=== PATIENT | female | born 1980 | race Caucasian/White ===

== ENCOUNTER 2019-07-09 19:12 | Inpatient (IN) | payer OTHER, SELFPAY ==
[2019-07-09] VITALS (9 sets, daily range): BP systolic 118–142; BP diastolic 77–98; PULSE 83–96; TEMP 36.4; BMI 31.2
--- NOTE | 2019-07-09 19:40 | LDADM ---
This patient, Radha Bacon, was admitted to Labor/Delivery/Recovery 105 on 07/09/19 at 19:12. Plans for labor, pain management and were discussed with patient. Patient/family oriented to hospital policies and general routines including ID bracelet, bed and alarms, visiting hours, pain management, procedures, bathroom and other care routines, personal items, smoking policy, room service/diet and guest tray routines, infant security routines, and visiting hours. Patient/Family are encouraged to report perceived risks to care and to ask questions if they do not understand what they are told or what they should do. See OBIX for further documentation.
[2019-07-09] MEDS: DINOPROSTONE 10 MG VAG INSERT VAGINAL (20:08)
[2019-07-09 20:11] LABS: Basophils Percent Auto 0.1 % (0.2-1.2); Eosinophils Absolute Auto 0.1 K/mm3 (0-0.3); Eosinophils Percent Auto 0.4 % (0-4.4); Hematocrit 33.4 % (37.0-47.0); Hemoglobin 10.7 g/dL (12.0-15.0); Immature Granulocyte Absolute 0.05 K/mm3 (0.00-0.031); Immature Granulocyte Percent A 0.4 % (0-0.5); Lymphocytes Absolute Auto 2.44 K/mm3 (0.9-3.2); Lymphocytes Percent Auto 21.7 % (18.3-44.2); Mean Corpuscular Hemoglobin 25.8 pg (26-34); Mean Corpuscular Volume 80.7 fl (80-100); Mean Platelet Volume 11.8 fl (7.4-10.4); Monocytes Absolute Auto 0.8 K/mm3 (0.1-0.6); Monocytes Percent Auto 6.7 % (2.6-8.5); Neutrophils Percent Auto 70.7 % (45.5-73.1); Platelet Count Result 318 k/mm3 (150-375); Red Blood Count 4.14 M/mm3 (4.2-5.4); Red Cell Distribution Width 14.8 % (11.5-14.5); White Blood Count 11.3 K/mm3 (4.5-10.0)
[2019-07-09 21:02] LABS: HIV 1/2 Ab P24 Ag Result Negative (Negative)
[2019-07-10] VITALS (183 sets, daily range): BP systolic 90–152; BP diastolic 49–131; PULSE 55–149; RESP 14–18; TEMP 36.3–37.6; O2SAT 90–100
[2019-07-10] MEDS: LACTATED RINGERS 1,000 ML 125 ML IV CONT ×4 (05:34→22:15)
[2019-07-10] MEDS: OXYTOCIN 30 UNITS/NS 500 ML 30 UNITS/500 ML BAG IV CONT (05:34)
[2019-07-10] MEDS: ONDANSETRON INJ 4 MG/2 ML VIAL IV PUSH ×2 (06:39→12:38)
[2019-07-10 09:25] LABS: Rapid Plasma Reagin Non-Reactive (NonReactive)
--- NOTE | 2019-07-10 09:28 | WPDANESEPPF ---
Anes - Initial Pre Proc Eval Date/Time: 07/10/19 09:28 Surgeon: Horacio Stanley MD Pre Op Diagnosis: Induction Patient Data Age: 38 Gender: F Height: 5 ft 6 in Weight: 87.75 kg Last Vital Signs Temp 36.7 C 07/10/19 08:00 Pulse 82 07/10/19 09:27 BP 128/78 07/10/19 09:27 Allergies Allergy/AdvReac Type Severity Reaction Status Date / Time No Known Allergies Allergy Verified 07/09/19 20:07 Laboratory Tests 07/09/19 07/09/19 07/09/19 20:02 20:02 20:02 WBC 11.3 K/mm3 H K/mm3 (4.5-10.0) RBC 4.14 M/mm3 L M/mm3 (4.2-5.4) Hgb 10.7 g/dL L g/dL (12.0-15.0) Hct 33.4 % L % (37.0-47.0) MCV 80.7 fl fl (80-100) MCH 25.8 pg L pg (26-34) MCHC 32.0 g/dl g/dl (32-36) RDW 14.8 % H % (11.5-14.5) Plt Count 318 k/mm3 k/mm3 (150-375) MPV 11.8 fl H fl (7.4-10.4) Immature Gran % (Auto) 0.4 % % (0-0.5) Neut % (Auto) 70.7 % % (45.5-73.1) Lymph % (Auto) 21.7 % % (18.3-44.2) [place] % (Auto) 6.7 % % (2.6-8.5) Eos % (Auto) 0.4 % % (0-4.4) Baso % (Auto) 0.1 % L % (0.2-1.2) Lymph # (Auto) 2.44 K/mm3 K/mm3 (0.9-3.2) [place] # (Auto) 0.8 K/mm3 H K/mm3 (0.1-0.6) Eos # (Auto) 0.1 K/mm3 K/mm3 (0-0.3) Baso # (Auto) 0.0 K/mm3 K/mm3 (0.0-0.1) Abs Immat Gran (auto) 0.05 K/mm3 H K/mm3 (0.00-0.031) Absolute Neuts (auto) 8.0 K/mm3 H K/mm3 (1.3-6.7) Absolute Nucleated RBC 0.0 K/mm3 K/mm3 (0.0-0.012) Nucleated RBC % 0.0 % % (0.0-0.2) RPR Non-reactive (NonReactive) HIV 1&2 Ab/P24 Ag 4thGn Negative (Negative) Blood Type Antibody Screen 07/09/19 20:02 WBC RBC Hgb Hct MCV MCH MCHC RDW Plt Count MPV Immature Gran % (Auto) Neut % (Auto) Lymph % (Auto) [place] % (Auto) Eos % (Auto) Baso % (Auto) Lymph # (Auto) [place] # (Auto) Eos # (Auto) Baso # (Auto) Abs Immat Gran (auto) Absolute Neuts (auto) Absolute Nucleated RBC Nucleated RBC % RPR HIV 1&2 Ab/P24 Ag 4thGn Blood Type A Positive Antibody Screen Negative Patient hx anesthesia problems: none Family hx anesthesia problems: none [facility] Family History Family History Other Bladder cancer Mother Fibromyalgia Grandparent Fibromyalgia Grandparent Acute myocardial infarction Social History Social History Smoking status: Never smoker Second hand tobacco smoke exposure: Yes Gender identity (if verbalized by the patient): Female Spiritual care concerns: No Anes - Eval Final PreProcedure Day of Procedure 07/10/19 09:28 Patient weight: overweight Heart: regular rate and rhythm Lungs: clear to auscultation Neurological: alert and oriented ASA classification: II Emergent: no Anesthetic plan: proceed Anesthesia type and monitoring: regional epidural and standard monitoring Informed Consent: The patient's anesthetic plan and its attendant risks and benefits were discussed with the patient/family/POA. Questions were solicited and answers provided to the satisfaction of the patient/family/POA.
[2019-07-10] MEDS: SODIUM CHLORIDE 0.9% IV 300 ML 600 ML I-UTERINE (14:02)
--- NOTE | 2019-07-10 20:19 | WPDANESEFPP ---
Anes - Eval Final PreProcedure Day of Procedure 07/10/19 20:19 Patient weight: obese Heart: regular rate and rhythm Lungs: clear to auscultation and normal air movement Airway: Mallampati scale class II Neurological: alert and oriented Last oral intake: >/= 8 hours ASA classification: II Emergent: no Anesthetic plan: proceed Anesthesia type and monitoring: regional epidural and standard monitoring Informed Consent: The patient's anesthetic plan and its attendant risks and benefits were discussed with the patient/family/POA. Questions were solicited and answers provided to the satisfaction of the patient/family/POA.
--- NOTE | 2019-07-10 20:23 | PM.IMHP ---
H&P: HPI History of Present Illness Chief complaint: Induction Narrative: Radha Baocn is a 38 year old female presents for elective induction of labor. records are on the chart. She has had care with Dr. yadira beasley at [facility]. No significant issues other than advanced maternal age for which she did undergo genetic counseling. Review of Systems Review of Systems: All systems reviewed & are unremarkable except as noted in HPI and below PMFSH Family History Family History Other Bladder cancer Mother Fibromyalgia Grandparent Fibromyalgia Grandparent Acute myocardial infarction Social History Social History Smoking status: Never smoker Second hand tobacco smoke exposure: Yes Gender identity (if verbalized by the patient): Female Spiritual care concerns: No Meds Home Medications and Allergies Allergies Allergy/AdvReac Type Severity Reaction Status Date / Time No Known Allergies Allergy Verified 07/09/19 20:07 Vital Signs Vital Signs - 24 hr 07/09/19 20:46 07/09/19 21:01 07/09/19 21:16 Temperature Pulse Rate 83 87 95 Blood Pressure 134/84 128/81 134/77 Pulse Oximetry 07/09/19 21:31 07/09/19 21:46 07/09/19 22:01 Temperature Pulse Rate 90 89 90 Blood Pressure 118/88 119/80 126/87 Pulse Oximetry 07/10/19 00:42 07/10/19 00:46 07/10/19 01:01 Temperature Pulse Rate 72 89 75 Blood Pressure 131/86 122/86 113/82 Pulse Oximetry 07/10/19 01:16 07/10/19 01:31 07/10/19 01:46 Temperature Pulse Rate 76 85 84 Blood Pressure 127/82 144/92 H 133/87 Pulse Oximetry 07/10/19 02:01 07/10/19 02:16 07/10/19 02:31 Temperature Pulse Rate 109 H 92 96 Blood Pressure 120/85 122/81 114/65 Pulse Oximetry 07/10/19 02:46 07/10/19 03:01 07/10/19 03:16 Temperature Pulse Rate 75 71 69 Blood Pressure 100/49 L 102/52 L 109/71 Pulse Oximetry 07/10/19 03:31 07/10/19 03:46 07/10/19 04:01 Temperature Pulse Rate 82 69 67 Blood Pressure 111/74 100/79 112/81 Pulse Oximetry 07/10/19 04:16 07/10/19 04:31 07/10/19 04:53 Temperature Pulse Rate 87 81 83 Blood Pressure 123/76 119/76 130/78 Pulse Oximetry 07/10/19 05:01 07/10/19 05:16 07/10/19 05:21 Temperature 36.3 C L Pulse Rate 89 97 Blood Pressure 125/90 128/80 Pulse Oximetry 07/10/19 05:31 07/10/19 05:46 07/10/19 06:01 Temperature Pulse Rate 93 102 H 93 Blood Pressure 130/71 130/82 120/92 H Pulse Oximetry 07/10/19 06:16 07/10/19 06:31 07/10/19 06:35 Temperature 36.6 C Pulse Rate 87 77 Blood Pressure 105/64 101/64 Pulse Oximetry 07/10/19 06:46 07/10/19 07:01 07/10/19 07:16 Temperature Pulse Rate 75 73 78 Blood Pressure 101/70 96/61 L 97/59 L Pulse Oximetry 07/10/19 07:31 07/10/19 07:46 07/10/19 08:00 Temperature 36.7 C Pulse Rate 72 75 Blood Pressure 107/72 131/79 Pulse Oximetry 07/10/19 08:01 07/10/19 08:16 07/10/19 08:31 Temperature Pulse Rate 75 78 73 Blood Pressure 113/74 117/72 113/70 Pulse Oximetry 07/10/19 08:46 07/10/19 09:01 07/10/19 09:15 Temperature Pulse Rate 66 76 90 Blood Pressure 112/73 118/80 145/84 H Pulse Oximetry 07/10/19 09:19 07/10/19 09:22 07/10/19 09:23 Temperature Pulse Rate 87 85 79 Blood Pressure 132/87 115/73 133/80 Pulse Oximetry 07/10/19 09:25 07/10/19 09:27 07/10/19 09:29 Temperature Pulse Rate 83 82 77 Blood Pressure 127/68 128/78 117/69 Pulse Oximetry 07/10/19 09:31 07/10/19 09:33 07/10/19 09:36 Temperature Pulse Rate 79 81 Blood Pressure 127/70 120/69 Pulse Oximetry 100 07/10/19 09:38 07/10/19 09:41 07/10/19 09:43 Temperature Pulse Rate 74 Blood Pressure 124/71 Pulse Oximetry 99 100 07/10/19 09:46 07/10/19 09:48 07/10/19 09:51 Temperature Pulse Rate 85 76 Blood Pressure 114/74
[2019-07-10] MEDS: ceFAZolin 2 GM/D5W 50 ML 2 GM/50 ML BAG IVPB (20:35)
--- NOTE | 2019-07-10 21:12 | P.PCNOB_ITS ---
OB - Delivery Note Procedure Delivery date: 07/10/19 Procedure: Procedures Operation Date: 07/10/19 20:20 <No data on this case meets the specified criteria> Route of delivery: Indication for instrumentation: other (arrest of descent) Specimen: No Estimated blood loss (mL): 300 Anesthesia type: Epidural Disposition: PACU Narrative: Patient was prepped and draped in the usual sterile manner for this procedure. Thinnest this was made carried to the fascia and extend from the rectus muscles. Peritoneum was readily entered bladder flap was developed. Uterus scored with clear fluid noted. Incision was extended bilaterally the length of the lower segment. Vertex delivered without difficulty suction of nasal and oropharynx and the rest of the baby was delivered. Cord was clamped and cut and placenta was delivered spontaneously. Uterus was exteriorized cleared of membranes and clots in the lower segment was approximated using 0 Monocryl suture in a running interlocking manner. Uterus was returned to the abdomen gutters were cleared of serosanguineous fluid and clots. All subfascial tissue was noted be hemostatic and the fascia was then approximated using 0 Vicryl suture from the left angle to midline in the right angle to the midline. Subcutaneous tissue was hemostatic approximated using 0 plain suture and skin darcy were approximated. Immediate postop condition of mother and baby were excellent. [place] Baby Weeks of gestation at delivery: 39 Infant gender: Female Weight (pounds): 7 Weight (ounces): 9 presentation: vertex Placenta delivery description: Expressed score one minute: 9 score five minutes: 9
[2019-07-10] MEDS: OXYTOCIN 30 UNITS/NS 500 ML 30 UNITS/500 ML BAG 125 UNITS IV CONT (22:15)
--- NOTE | 2019-07-10 23:40 | OBPPTRN ---
Patient transferred to post room #290 via stretcher with infant in crib. Support person present. Oriented to unit, room, information board, rooming in, admission packet and security measures. Patient verbalizes understanding.
[2019-07-11] VITALS (12 sets, daily range): BP systolic 113–148; BP diastolic 67–84; PULSE 77–98; RESP 16–18; TEMP 36.7–37.5; O2SAT 97–99
[2019-07-11 05:52] LABS: Basophils Percent Auto 0.2 % (0.2-1.2); Hematocrit 27.9 % (37.0-47.0); Hemoglobin 8.9 g/dL (12.0-15.0); Immature Granulocyte Absolute 0.17 K/mm3 (0.00-0.031); Immature Granulocyte Percent A 0.8 % (0-0.5); Lymphocytes Percent Auto 5.8 % (18.3-44.2); Mean Corpuscular HGB Conc 31.9 g/dl (32-36); Mean Corpuscular Hemoglobin 26.3 pg (26-34); Mean Corpuscular Volume 82.5 fl (80-100); Mean Platelet Volume 12.6 fl (7.4-10.4); Monocytes Percent Auto 4.3 % (2.6-8.5); Neutrophils Absolute Auto 20.1 K/mm3 (1.3-6.7); Neutrophils Percent Auto 88.9 % (45.5-73.1); Platelet Count Result 270 k/mm3 (150-375); Red Blood Count 3.38 M/mm3 (4.2-5.4); Red Cell Distribution Width 14.9 % (11.5-14.5); White Blood Count 22.6 K/mm3 (4.5-10.0)
--- NOTE | 2019-07-11 06:30 | PC.NURSE ---
PT introductions made and plan of care discussed per post op c section,pain management, breast feeding,daily care activities. PT verbalized understanding of such care
[2019-07-11] MEDS: SIMETHICONE 80 MG TAB.CHEW PO (10:44)
[2019-07-11] MEDS: DOCUSATE SODIUM 100 MG CAPSULE PO ×2 (10:45→16:09)
[2019-07-11] MEDS: POLYSACCHARIDE IRON COMPLEX 150 MG CAPSULE PO ×2 (10:45→16:09)
[2019-07-11] MEDS: MULTIVIT/MIN/PREN/FOL AC/IRON TABLET 1 TAB PO (10:45)
[2019-07-11] MEDS: IBUPROFEN 600 MG TABLET PO ×2 (10:46→19:12)
--- NOTE | 2019-07-11 14:09 | WPDANLDNPN2 ---
Anes-Prog Note L&D-Neuraxial Date/Time: 07/11/19 14:09 Neuraxial medications: epidural PF morphine Opiod-related complaints: none Patient feedback: Patient satisfied with post-operative pain management.
--- NOTE | 2019-07-11 14:10 | WPDANLDPN2 ---
Anes-Prog Note L&D Date/Time: 07/11/19 14:10 Comfortable throughout: section Neuraxial method: epidural Epidural/Spinal procedure site: clean & non-tender Neuro status: Neuro function grossly intact. Cardiovascular status: normal Respiratory status: normal Airway patency: baseline Mental status: baseline Post-Op hydration status: normal Vital Signs: Last Vital Signs Temp 37.3 C 07/11/19 08:20 Pulse 81 07/11/19 08:20 Resp 18 07/11/19 08:20 BP 126/72 07/11/19 08:20 Pulse Ox 97 07/11/19 08:20 I/O: Intake & Output 07/10/19 07/11/19 07/11/19 23:59 07:59 15:59 Intake Total 2050 150 Output Total 100 225 Balance 1950 -75 Post-procedural complaints: none Patient feedback: Patient satisfied with anesthetic care.
[2019-07-12] MEDS: IBUPROFEN 600 MG TABLET PO ×2 (02:59→11:17)
[2019-07-12] MEDS: POLYSACCHARIDE IRON COMPLEX 150 MG CAPSULE PO (07:42)
[2019-07-12] MEDS: MULTIVIT/MIN/PREN/FOL AC/IRON TABLET 1 TAB PO (07:42)
[2019-07-12] MEDS: DOCUSATE SODIUM 100 MG CAPSULE PO (07:42)
[2019-07-12 08:05] VITALS: BP 128/75; PULSE 84; RESP 18; TEMP 37.2; O2SAT 100
--- NOTE | 2019-07-12 08:20 | PC.NURSE ---
Mother called out for observation of feeding. Upon entering mother is holding breast and FOB is holding up to breast. Reviewed positioning/alignment in football, holding breast in C hold and guided asymmetrical latch on. Discussed rational for each. Infant was able to latch correctly. nursed eagerly, with steady draws and frequent swallowing noted. Reviewed signs of a correct latch, effective nursing and suck swallow ratio. was able to maintain latch without discomfort to mother. Nipple care reviewed. Reviewed infant feeding cues, frequencies, duration of feedings, feeding elimination flow sheet, and signs of adequate intake. Instructed mother to call out for RN assistance if she is unable to latch infant for feeding or she has discomfort with nursing. Instructed feeding should be initiated three hours from start of last feeding or if feeding cues are noted before. Mother voiced understanding of information shared.
--- NOTE | 2019-07-12 11:18 | P.DS_ITS ---
DS: Diagnosis Admitting Diagnosis Admitting Diagnosis: Encounter for supervision of normal , unspecified, unspecified trimester OB - DS: Summary OB Procedures : None OB Procedures Intrapartum: OB Procedures: : None Peripartum Data Procedures: Procedures Operation Date: 07/10/19 20:20 Actual Procedures Side Surgeon p Section Not Applicable Horacio Stanley MD Time Spent with Patient Time attestation: Total time spent providing and/or coordinating discharge services: Discharge Plan Discharge Discharging Clinician: Horacio Stanley Patient Disposition: Home Health Service Activity: as tolerated Diet: as tolerated Wound Care Instructions: incision open to air Discharge Instructions: office wednesday for staple removal/please send home with remover/strips Patient Instructions: Antibiotic Form Stand Alone Forms: General Discharge Information Follow-up/Referrals: Horacio Stanley MD [Physician] - 3 Weeks Discharge Medications: New hydrocodone-acetaminophen 5-325 mg Tablet 1 tab PO Q3H PRN (Reason: Moderate Pain (4-6)) Qty: 30 RF: 0 ibuprofen 600 mg Tablet 600 mg PO Q6H PRN (Reason: Cramping) Qty: 30 RF: 0 Date of admission: 07/09/19 19:12 Primary Care Provider: PHYSICIAN,ASSISTANT HOUSEKEEPING MANAGER Admitting Provider: Horacio Stanley Attending physician on admission: Horacio Stanley
--- NOTE | 2019-07-12 11:21 | P.DS_ITS ---
DS: Diagnosis Admitting Diagnosis Admitting Diagnosis: Encounter for supervision of normal , unspecified, unspecified trimester OB - DS: Summary OB Procedures : None OB Procedures Intrapartum: OB Procedures: : None Peripartum Data Procedures: Procedures Operation Date: 07/10/19 20:20 Actual Procedures Side Surgeon p Section Not Applicable Horacio Stanley MD Time Spent with Patient Time attestation: Total time spent providing and/or coordinating discharge services: Discharge Plan Discharge Discharging Clinician: Horacio Stanley Patient Disposition: Home Health Service Activity: as tolerated Diet: as tolerated Wound Care Instructions: incision open to air Discharge Instructions: office wednesday for staple removal/please send home with remover/strips Patient Instructions: Antibiotic Form Stand Alone Forms: General Discharge Information Follow-up/Referrals: Horacio Stanley MD [Physician] - 3 Weeks Discharge Medications: New hydrocodone-acetaminophen 5-325 mg Tablet 1 tab PO Q3H PRN (Reason: Moderate Pain (4-6)) Qty: 30 RF: 0 ibuprofen 600 mg Tablet 600 mg PO Q6H PRN (Reason: Cramping) Qty: 30 RF: 0 Date of admission: 07/09/19 19:12 Primary Care Provider: PHYSICIAN,SENIOR SUPPORT ANALYST Admitting Provider: Horacio Stanley Attending physician on admission: Horacio Stanley
--- NOTE | 2019-07-12 11:22 | P.DS_ITS ---
DS: Diagnosis Admitting Diagnosis Admitting Diagnosis: Encounter for supervision of normal , unspecified, unspecified trimester OB - DS: Summary OB Procedures : None OB Procedures Intrapartum: OB Procedures: : None Peripartum Data Procedures: Procedures Operation Date: 07/10/19 20:20 Actual Procedures Side Surgeon p Section Not Applicable Horacio Stanley MD Time Spent with Patient Time attestation: Total time spent providing and/or coordinating discharge services: Discharge Plan Discharge Discharging Clinician: Horacio Stanley Patient Disposition: Home Health Service Activity: as tolerated Diet: as tolerated Wound Care Instructions: incision open to air Discharge Instructions: office wednesday for staple removal/please send home with remover/strips Patient Instructions: Antibiotic Form Stand Alone Forms: General Discharge Information Follow-up/Referrals: Horacio Stanley MD [Physician] - 3 Weeks Discharge Medications: New hydrocodone-acetaminophen 5-325 mg Tablet 1 tab PO Q3H PRN (Reason: Moderate Pain (4-6)) Qty: 30 RF: 0 ibuprofen 600 mg Tablet 600 mg PO Q6H PRN (Reason: Cramping) Qty: 30 RF: 0 Date of admission: 07/09/19 19:12 Primary Care Provider: PHYSICIAN,HOME AID Admitting Provider: Horacio Stanley Attending physician on admission: Horacio Stanley
--- NOTE | 2019-07-12 12:05 | PC.NURSE ---
Mother called out for assist with feeding. Mother reports she is wishes to be discharged today. Assisted with to breast. Reviewed positioning/alignment in cross cradle, holding breast in U hold and guided asymmetrical latch on. Discussed rational for each. Suggested FOB stimulate to keep awake and effectively feeding. Infant was able to latch correctly. Infant nursed eagerly, with steady draws and frequent swallowing noted. Reviewed signs of a correct latch, effective nursing and suck swallow ratio. was able to maintain latch without discomfort to mother. Mother reports this is more comfortable with holding . Nipple care reviewed. Mother is feeding as required and waking infant to feed if needed. has had 8 effective feedings in the past 24 hours, and is currently meeting outcomes for weight, output, jaundice and feeding frequencies. Mother states she feels confident to continue effective at home. Reviewed transition to breast milk, signs of adequate intake, and engorgement/relief. Instructed to call ICP if intake/output less than required. Reviewed regular medications mother is taking. Information provided per [facility]. Reviewed community resources on the [facility] website and in the Mom/Baby guide. Information on outpatient services provided. Mother has no further questions at this time.
--- NOTE | 2019-07-12 15:00 | PC.NURSE ---
Patient given a staple removal kit and steristrips per Dr. Stanley's orders. Vincent to be removed in the office on Wednesday07/14/2019. Patient also requested and was given an abdominal binder.
--- NOTE | 2019-07-12 15:49 | PC.NURSE ---
Mother and Father watched discharge DVD 07/12/2019.
[2019-07-14 12:18] VITALS: BP 124/82; PULSE 87; RESP 20; TEMP 36.7
== END 2019-07-12 15:44 | disposition home or self-care (01) | DRG 540 ==
LOC: ANHLDR 07-10 21:12 → ANHOB2 07-11 01:32
PROVIDERS: Admitting Provider Obstetrics & Gynecology; Visit Provider Obstetrics & Gynecology
PROC: 10907ZC Drainage of Amniotic Fluid, Therapeutic from Products of Conception, Via Natural or Artificial Opening (ICD-10-PCS; CPT 59514; principal; 2019-07-10 20:20)
DX: O99.214 Obesity complicating childbirth (principal); O76 Abnormality in fetal heart rate and rhythm complicating labor and delivery; E66.9 Obesity, unspecified; Z3A.39 39 weeks gestation of pregnancy; Z37.0 Single live birth; Z23 Encounter for immunization; O64.8XX0 Obstructed labor due to other malposition and malpresentation, not applicable or unspecified
CPT/HCPCS: 36415; 85025; 86592; 86703; 86850; 86900; 86901; A9270; G0432; J0690; J1100; J1885; J2274; J2405; J2590; J2795; J3010; J7030; J7120